=== PATIENT | female | born 1960 | race Two or more races ===

== ENCOUNTER 2024-07-29 22:04 | Inpatient (IN) | payer OTHER, MEDICARE ==
[~2024-07-29] VITALS: Ht 152.4 cm; Wt 50.8 kg
[2024-07-29 22:40] LABS: HEMOGLOBIN 14.6 g/dL (10.9-14.3); MEAN CORPUSCULAR HEMOGLOBIN 30.4 uug (24.7-32.8); MEAN CORPUSCULAR HGB CONC 34 g/dL (32.3-35.6)
[2024-07-29 22:44] LABS: BASOPHILS # (AUTO) 0.1 K/UL (0.0-0.2); BASOPHILS % (AUTO) 1.1 % (0.0-2.0); EOSINOPHILS # (AUTO) 0.2 K/uL (0.0-0.7); EOSINOPHILS % (AUTO) 2.6 % (0.0-7.0); HEMATOCRIT 43.5 % (31.2-41.9); LYMPHOCYTES # (AUTO) 1.5 K/uL (0.8-4.8); LYMPHOCYTES % (AUTO) 17.9 % (20.5-51.5); MEAN CORPUSCULAR VOLUME 90.4 fL (75.5-95.3); MONOCYTES % (AUTO) 11.8 % (0.0-11.0); NEUTROPHILS # (AUTO) 5.7 K/uL (1.8-8.9); NEUTROPHILS % (AUTO) 66.6 % (38.5-71.5); PLATELET COUNT (AUTO) 340 K/uL (179-408); RED BLOOD CELL COUNT(AUTO) 4.81 MIL/uL (3.63-4.92); RED CELL DISTRIBUTION WIDTH 13.5 % (12.3-17.7); WHITE BLOOD COUNT (AUTO) 8.6 K/uL (3.8-11.8)
[2024-07-29 22:46] LABS: DIFFERENTIAL COMMENT 1
[2024-07-29 22:48] LABS: AMMONIA < 10 umol/L (11-32)
[2024-07-29 22:51] LABS: ETHANOL < 3 MG/DL (0-10)
[2024-07-29 22:56] LABS: ALANINE AMINOTRANSFERASE 23 U/L (14-59); ALKALINE PHOSPHATASE 107 U/L (50-136); ASPARTATE AMINOTRANSFERASE 22 U/L (15-37); BILIRUBIN,DIRECT 0.1 mg/dL (0.0-0.2); BILIRUBIN,TOTAL 0.6 mg/dL (0.2-1.0); CALCIUM 9.6 mg/dL (8.5-10.1); CARBON DIOXIDE 31 mmol/L (21-32); CHLORIDE 102 mmol/L (98-107); CREATININE 0.7 mg/dL (0.6-1.3); GLUCOSE 107 mg/dL (74-106); POTASSIUM 3.9 mmol/L (3.5-5.1); SODIUM SERUM 143 mmol/L (136-145); UREA NITROGEN, BLOOD 9 mg/dL (7-18)
[2024-07-29 22:57] LABS: ACETAMINOPHEN < 10.0 ug/mL (10-30)
[2024-07-30] VITALS (11 sets, daily range): BP systolic 119–174; BP diastolic 64–112; TEMP 98.4–98.9; O2SAT 93–99
[2024-07-30] MEDS ORDERED: IOHEXOL 350 100 ML INFUS..BTL ONE (00:46)
[2024-07-30] MEDS ORDERED: ONDANSETRON 4 MG/2 ML VIAL IV PRN (02:30)
[2024-07-30 07:33] LABS: BASOPHILS # (AUTO) 0.1 K/UL (0.0-0.2); BASOPHILS % (AUTO) 1.3 % (0.0-2.0); EOSINOPHILS # (AUTO) 0.2 K/uL (0.0-0.7); EOSINOPHILS % (AUTO) 2.8 % (0.0-7.0); HEMATOCRIT 40.7 % (31.2-41.9); HEMOGLOBIN 13.9 g/dL (10.9-14.3); LYMPHOCYTES # (AUTO) 1.5 K/uL (0.8-4.8); LYMPHOCYTES % (AUTO) 21.6 % (20.5-51.5); MEAN CORPUSCULAR HEMOGLOBIN 30.8 uug (24.7-32.8); MEAN CORPUSCULAR HGB CONC 34 g/dL (32.3-35.6); MEAN CORPUSCULAR VOLUME 90.4 fL (75.5-95.3); MONOCYTES # (AUTO) 0.8 K/uL (0.1-1.30); MONOCYTES % (AUTO) 10.8 % (0.0-11.0); NEUTROPHILS # (AUTO) 4.4 K/uL (1.8-8.9); NEUTROPHILS % (AUTO) 63.5 % (38.5-71.5); PLATELET COUNT (AUTO) 325 K/uL (179-408); RED BLOOD CELL COUNT(AUTO) 4.51 MIL/uL (3.63-4.92); RED CELL DISTRIBUTION WIDTH 13.2 % (12.3-17.7)
[2024-07-30 07:55] LABS: DIFFERENTIAL COMMENT 1
[2024-07-30 08:01] LABS: ALBUMIN 2.7 g/dL (3.4-5.0); BILIRUBIN,DIRECT 0.1 mg/dL (0.0-0.2); BILIRUBIN,TOTAL 0.6 mg/dL (0.2-1.0); CALCIUM 8.9 mg/dL (8.5-10.1); CREATININE 0.6 mg/dL (0.6-1.3); MAGNESIUM 2.3 mg/dL (1.8-2.4); PHOSPHOROUS 4.1 mg/dL (2.5-4.9); POTASSIUM 3.5 mmol/L (3.5-5.1); TOTAL PROTEIN, SERUM 6.4 g/dL (6.4-8.2)
[2024-07-30 08:05] LABS: THYROID STIMULATING HORMONE 1.393 mIU/mL (0.358-3.740)
[2024-07-30] MEDS: ASPIRIN 81 MG TAB.CHEW PO SCH (09:00)
[2024-07-30 13:53] LABS: *BILIRUBIN,URIN NEGATIVE (NEGATIVE); *CLARITY,URINE SLIGHTLY CLOUDY (CLEAR); *COLOR,URINE YELLOW (YELLOW); *KETONES,URINE NEGATIVE (NEGATIVE); *PROTEIN,URINE TRACE (NEGATIVE); LEUKOCYTE ESTERASE ,URINE 2+ (NEGATIVE); NITRITE, URINE POSITIVE (NEGATIVE); PH,URINE >=9.0 (5.0-8.0); UGLUCOSE NEGATIVE (NEGATIVE)
[2024-07-30 13:56] LABS: *BLOOD, URINE TRACE (NEGATIVE)
[2024-07-30 14:08] LABS: BACTERIA,URINE MANY /HPF (NONE SEEN); URINE AMORPHOUS PHOSPHATES FEW /HPF
[2024-07-30 14:13] LABS: *AMPHETAMINE, URINE NEGATIVE (NEGATIVE); *BARBITURATE, URINE NEGATIVE (NEGATIVE); *BENZODIAZEPINE, URINE NEGATIVE (NEGATIVE); *CANNABINOID, URINE NEGATIVE (NEGATIVE); *COCCAINE, URINE NEGATIVE (NEGATIVE); *OPIATE, URINE NEGATIVE (NEGATIVE); *PHENCYCLIDINE SCREEN,URINE NEGATIVE (NEGATIVE); FENTANYL, URINE NEGATIVE (NEGATIVE)
[2024-07-30] MEDS: IV NS 1000 ML 1,000 ML IV PRN (15:55)
[2024-07-30 18:06] LABS: THYROID STIMULATING HORMONE 0.736 mIU/mL (0.358-3.740)
[2024-07-30] MEDS: ATORVASTATIN 40 MG TABLET PO SCH (20:20)
[2024-07-31] VITALS (26 sets, daily range): BP systolic 112–179; BP diastolic 51–103; TEMP 97.5–98.5; O2SAT 91–100
[2024-08-01] VITALS (23 sets, daily range): BP systolic 116–178; BP diastolic 55–108; TEMP 97.1–98.4; O2SAT 97–100
[2024-08-01] MEDS: CEFTRIAXONE 1 G in IV DEXTROSE 5% 50 ML IV SCH (15:30)
[2024-08-01] MEDS: VANCOMYCIN HCL 750 MG in IV DEXTROSE 5% 250 ML IV SCH (16:30)
[2024-08-02] VITALS (25 sets, daily range): BP systolic 116–159; BP diastolic 51–119; TEMP 98–98.7; O2SAT 97–100
[2024-08-02 05:12] LABS: BASOPHILS # (AUTO) 0.1 K/UL (0.0-0.2); BASOPHILS % (AUTO) 0.6 % (0.0-2.0); EOSINOPHILS # (AUTO) 0.2 K/uL (0.0-0.7); HEMATOCRIT 43.7 % (31.2-41.9); HEMOGLOBIN 14.5 g/dL (10.9-14.3); LYMPHOCYTES # (AUTO) 1.3 K/uL (0.8-4.8); LYMPHOCYTES % (AUTO) 11.4 % (20.5-51.5); MEAN CORPUSCULAR HEMOGLOBIN 29.9 uug (24.7-32.8); MEAN CORPUSCULAR HGB CONC 33 g/dL (32.3-35.6); MEAN CORPUSCULAR VOLUME 90.1 fL (75.5-95.3); MONOCYTES # (AUTO) 1.2 K/uL (0.1-1.30); MONOCYTES % (AUTO) 10.3 % (0.0-11.0); NEUTROPHILS # (AUTO) 8.8 K/uL (1.8-8.9); NEUTROPHILS % (AUTO) 75.7 % (38.5-71.5); PLATELET COUNT (AUTO) 343 K/uL (179-408); RED BLOOD CELL COUNT(AUTO) 4.85 MIL/uL (3.63-4.92); RED CELL DISTRIBUTION WIDTH 13.3 % (12.3-17.7); WHITE BLOOD COUNT (AUTO) 11.7 K/uL (3.8-11.8)
[2024-08-02 05:35] LABS: DIFFERENTIAL COMMENT 1
[2024-08-02 05:49] LABS: ALBUMIN 2.4 g/dL (3.4-5.0); BILIRUBIN,TOTAL 0.6 mg/dL (0.2-1.0); CALCIUM 8.4 mg/dL (8.5-10.1); CREATININE 0.6 mg/dL (0.6-1.3); MAGNESIUM 1.8 mg/dL (1.8-2.4); PHOSPHOROUS 2.5 mg/dL (2.5-4.9); POTASSIUM 3.8 mmol/L (3.5-5.1); TOTAL PROTEIN, SERUM 6.2 g/dL (6.4-8.2)
[2024-08-02] MEDS: LORAZEPAM 2 MG/1 ML VIAL IV ONE (11:15)
[2024-08-03] VITALS (21 sets, daily range): BP systolic 107–157; BP diastolic 46–109; TEMP 98.3–99.2; O2SAT 90–100
[2024-08-03] MEDS: VANCOMYCIN HCL 750 MG in IV DEXTROSE 5% 250 ML IV SCH (14:04)
[2024-08-03] MEDS: CEphaleXIN 500 MG CAPSULE PO SCH (21:01)
[2024-08-04 00:03] VITALS: BP 114/69; TEMP 98.7; O2SAT 100
[2024-08-04 06:00] VITALS: BP 123/66; TEMP 98; O2SAT 98
[2024-08-04 07:18] LABS: BASOPHILS # (AUTO) 0.1 K/UL (0.0-0.2); BASOPHILS % (AUTO) 1.4 % (0.0-2.0); EOSINOPHILS # (AUTO) 0.2 K/uL (0.0-0.7); EOSINOPHILS % (AUTO) 1.8 % (0.0-7.0); HEMATOCRIT 44.3 % (31.2-41.9); HEMOGLOBIN 15.1 g/dL (10.9-14.3); LYMPHOCYTES # (AUTO) 1.5 K/uL (0.8-4.8); LYMPHOCYTES % (AUTO) 14.2 % (20.5-51.5); MEAN CORPUSCULAR HEMOGLOBIN 30.5 uug (24.7-32.8); MEAN CORPUSCULAR HGB CONC 34 g/dL (32.3-35.6); MEAN CORPUSCULAR VOLUME 89.8 fL (75.5-95.3); MONOCYTES # (AUTO) 1.4 K/uL (0.1-1.30); MONOCYTES % (AUTO) 13.4 % (0.0-11.0); NEUTROPHILS # (AUTO) 7.2 K/uL (1.8-8.9); NEUTROPHILS % (AUTO) 69.2 % (38.5-71.5); PLATELET COUNT (AUTO) 343 K/uL (179-408); RED BLOOD CELL COUNT(AUTO) 4.93 MIL/uL (3.63-4.92); RED CELL DISTRIBUTION WIDTH 13.3 % (12.3-17.7); WHITE BLOOD COUNT (AUTO) 10.4 K/uL (3.8-11.8)
[2024-08-04 07:26] LABS: CALCIUM 8.6 mg/dL (8.5-10.1); CREATININE 0.7 mg/dL (0.6-1.3); POTASSIUM 3.9 mmol/L (3.5-5.1)
[2024-08-04 07:29] LABS: MAGNESIUM 2.2 mg/dL (1.8-2.4); PHOSPHOROUS 3.8 mg/dL (2.5-4.9)
[2024-08-04 07:34] LABS: DIFFERENTIAL COMMENT 1
[2024-08-04 07:38] VITALS: BP 119/63; TEMP 97; O2SAT 97
[2024-08-04] MEDS: METOPROLOL TARTRATE 25 MG TABLET PO SCH (08:28)
[2024-08-04 16:00] VITALS: BP 138/56; TEMP 97.6; O2SAT 97
[2024-08-04 19:49] VITALS: BP 140/68; TEMP 98.8; O2SAT 93
[2024-08-05 06:19] VITALS: BP 124/56; TEMP 98.4; O2SAT 98
[2024-08-05 12:00] VITALS: BP 139/61; TEMP 97.6; O2SAT 98
[2024-08-05 16:00] VITALS: BP 136/80; TEMP 98.6; O2SAT 97
[2024-08-05 20:58] VITALS: BP 132/62; TEMP 98.2; O2SAT 97
[2024-08-06 06:00] VITALS: BP 124/54; TEMP 98.2; O2SAT 97
[2024-08-06 08:11] LABS: BASOPHILS # (AUTO) 0.1 K/UL (0.0-0.2); BASOPHILS % (AUTO) 1.2 % (0.0-2.0); EOSINOPHILS # (AUTO) 0.2 K/uL (0.0-0.7); EOSINOPHILS % (AUTO) 3.1 % (0.0-7.0); HEMOGLOBIN 13.5 g/dL (10.9-14.3); LYMPHOCYTES # (AUTO) 1.5 K/uL (0.8-4.8); LYMPHOCYTES % (AUTO) 20.2 % (20.5-51.5); MEAN CORPUSCULAR HEMOGLOBIN 30.4 uug (24.7-32.8); MEAN CORPUSCULAR HGB CONC 34 g/dL (32.3-35.6); MEAN CORPUSCULAR VOLUME 89.9 fL (75.5-95.3); MONOCYTES # (AUTO) 0.9 K/uL (0.1-1.30); MONOCYTES % (AUTO) 12.7 % (0.0-11.0); NEUTROPHILS # (AUTO) 4.6 K/uL (1.8-8.9); NEUTROPHILS % (AUTO) 62.8 % (38.5-71.5); PLATELET COUNT (AUTO) 384 K/uL (179-408); RED BLOOD CELL COUNT(AUTO) 4.45 MIL/uL (3.63-4.92); RED CELL DISTRIBUTION WIDTH 13.3 % (12.3-17.7); WHITE BLOOD COUNT (AUTO) 7.4 K/uL (3.8-11.8)
[2024-08-06 08:25] LABS: DIFFERENTIAL COMMENT 1
[2024-08-06] MEDS: CLOPIDOGREL 75 MG TABLET PO SCH (08:31)
[2024-08-06 08:56] LABS: ALBUMIN 2.4 g/dL (3.4-5.0); BILIRUBIN,TOTAL 0.5 mg/dL (0.2-1.0); CALCIUM 8.9 mg/dL (8.5-10.1); CREATININE 0.6 mg/dL (0.6-1.3); PHOSPHOROUS 4.2 mg/dL (2.5-4.9); POTASSIUM 4.2 mmol/L (3.5-5.1); TOTAL PROTEIN, SERUM 6.5 g/dL (6.4-8.2)
[2024-08-06 08:58] VITALS: BP 111/57; TEMP 98; O2SAT 98
[2024-08-06 11:38] VITALS: BP 155/77; TEMP 98.3; O2SAT 98
[2024-08-06 15:18] VITALS: BP 154/63; TEMP 97.5; O2SAT 98
[2024-08-06 16:23] VITALS: BP 154/63; TEMP 97.5; O2SAT 97
[2024-08-06 20:00] VITALS: BP 145/65; TEMP 98.7; O2SAT 96
[2024-08-07 06:00] VITALS: BP 123/63; TEMP 97.9; O2SAT 95
[2024-08-07 12:00] VITALS: BP 139/64; TEMP 97.7; O2SAT 96
[2024-08-07 16:54] VITALS: BP_SYST 117; BP_SYST 162; BP_DIAS 63; BP_DIAS 71; TEMP 97.6; O2SAT 97
[2024-08-07 20:36] VITALS: BP 165/75; TEMP 98.6; O2SAT 98
[2024-08-08 06:22] VITALS: BP 147/69; TEMP 97.6; O2SAT 96
[2024-08-08] MEDS: REMEDY ESSENTIAL ZINC PASTE 113 GM TP PRN (08:54)
[2024-08-08 11:59] VITALS: BP 142/59; TEMP 98.2; O2SAT 94
[2024-08-08] MEDS ORDERED: ASPI81TA31 PO (12:12)
[2024-08-08] MEDS ORDERED: METO25TA6 PO (12:12)
[2024-08-08] MEDS ORDERED: ATOR40TA PO (12:12)
[2024-08-08 15:44] VITALS: BP 144/63; TEMP 97.6; O2SAT 99
== END 2024-08-08 19:10 | DRG 45 ==
LOC: ER 22:07 → CCU 07-30 14:05 → TELE3 08-03 13:57 → MEDSURG3 08-04 10:35
PROVIDERS: ADMIT Nurse Practitioner Family; ATTEND Nurse Practitioner Family
DX: I63.512 Cerebral infarction due to unspecified occlusion or stenosis of left middle cerebral artery (principal); G93.49 Other encephalopathy; G93.6 Cerebral edema; E43 Unspecified severe protein-calorie malnutrition; D68.59 Other primary thrombophilia; G93.89 Other specified disorders of brain; R47.01 Aphasia; E88.09 Other disorders of plasma-protein metabolism, not elsewhere classified; R29.715 NIHSS score 15; Z74.09 Other reduced mobility; Z58.89 Other problems related to physical environment; N39.0 Urinary tract infection, site not specified; B96.20 Unspecified Escherichia coli [E. coli] as the cause of diseases classified elsewhere; E78.5 Hyperlipidemia, unspecified; J45.909 Unspecified asthma, uncomplicated; Z87.891 Personal history of nicotine dependence; Z86.73 Personal history of transient ischemic attack (TIA), and cerebral infarction without residual deficits; I49.3 Ventricular premature depolarization; F19.11 Other psychoactive substance abuse, in remission
CPT/HCPCS: 36415; 70450; 70496; 70551; 71045; 83605; 83735; 83921; 84100; 84443; 84484; 85025; 85730; 87040; 93005; 93307; A4606; G0378; G0480; J0696; J2060; J7040; J7050; Q9967

== ENCOUNTER 2025-02-27 10:25 | Inpatient (IN) | payer MEDICARE, OTHER ==
[~2025-02-27] VITALS: Ht 152.4 cm; Wt 64.0 kg
[~2025-02-27 10:25] MED LIST: ASPI81TA31 PO; ATOR40TA PO; METO25TA6 PO
[2025-02-27] MEDS ORDERED: MULT-594 PO (10:55)
[2025-02-27] MEDS ORDERED: POLY15DR31 EACHEYE (10:55)
[2025-02-27] MEDS ORDERED: CHOL-35 PO (10:55)
[2025-02-27 10:57] LABS: BASOPHILS % (AUTO) 0.6 % (0.0-2.0); EOSINOPHILS # (AUTO) 0.2 K/uL (0.0-0.7); EOSINOPHILS % (AUTO) 2.3 % (0.0-7.0); HEMATOCRIT 41.2 % (31.2-41.9); HEMOGLOBIN 13.9 g/dL (10.9-14.3); LYMPHOCYTES # (AUTO) 1.7 K/uL (0.8-4.8); LYMPHOCYTES % (AUTO) 22.6 % (20.5-51.5); MEAN CORPUSCULAR HEMOGLOBIN 29.7 uug (24.7-32.8); MEAN CORPUSCULAR HGB CONC 34 g/dL (32.3-35.6); MEAN CORPUSCULAR VOLUME 88.1 fL (75.5-95.3); MONOCYTES # (AUTO) 0.7 K/uL (0.1-1.30); MONOCYTES % (AUTO) 9.3 % (0.0-11.0); NEUTROPHILS % (AUTO) 65.2 % (38.5-71.5); PLATELET COUNT (AUTO) 314 K/uL (179-408); RED BLOOD CELL COUNT(AUTO) 4.68 MIL/uL (3.63-4.92); RED CELL DISTRIBUTION WIDTH 13.5 % (12.3-17.7); WHITE BLOOD COUNT (AUTO) 7.6 K/uL (3.8-11.8)
[2025-02-27 11:03] LABS: CALCIUM 9.2 mg/dL (8.5-10.1); CARBON DIOXIDE 28 mmol/L (21-32); CHLORIDE 106 mmol/L (98-107); CREATININE 0.5 mg/dL (0.6-1.3); GLUCOSE 94 mg/dL (74-106); POTASSIUM 3.8 mmol/L (3.5-5.1); SODIUM SERUM 141 mmol/L (136-145); UREA NITROGEN, BLOOD 19 mg/dL (7-18)
[2025-02-27 11:16] LABS: NT-PRO BNP 40 pg/mL (0-125)
[2025-02-27 11:36] LABS: DIFFERENTIAL COMMENT 1
[2025-02-27 11:53] VITALS: BP 176/73; TEMP 98.4; O2SAT 97
[2025-02-27] MEDS ORDERED: ATOR40TA PO (12:07)
[2025-02-27] MEDS ORDERED: METO25TA6 PO (12:09)
[2025-02-27 15:59] VITALS: BP 153/77; TEMP 97.7; O2SAT 95
[2025-02-27] MEDS ORDERED: HYDROCODONE/APAP 5-325MG TABLET PO PRN (16:00)
[2025-02-27] MEDS ORDERED: TEMAZEPAM 15 MG CAPSULE PO PRN (16:00)
[2025-02-27] MEDS ORDERED: ONDANSETRON 4 MG/2 ML VIAL IV PRN (16:00)
[2025-02-27] MEDS: METOPROLOL TARTRATE 25 MG TABLET PO SCH (17:37)
[2025-02-27] MEDS: ASPIRIN 81 MG TAB.CHEW PO SCH (17:37)
[2025-02-27] MEDS: ATORVASTATIN 40 MG TABLET PO SCH (20:30)
[2025-02-27] MEDS: DOCUSATE SODIUM 100 MG CAPSULE PO SCH (20:30)
[2025-02-27 20:42] VITALS: BP 139/70; TEMP 97.8; O2SAT 100
[2025-02-27] MEDS ORDERED: DOCUSATE SODIUM 250 MG CAPSULE PO SCH (21:00)
[2025-02-28 00:31] VITALS: BP 142/61; TEMP 98.2; O2SAT 94
[2025-02-28 04:51] VITALS: BP 127/73; TEMP 97.7; O2SAT 98
[2025-02-28] MEDS: PANTOPRAZOLE SODIUM 40 MG TABLET.DR PO SCH (06:06)
[2025-02-28 07:22] VITALS: BP 144/68; TEMP 97.5; O2SAT 97
[2025-02-28] MEDS: MULTIVITAMINS,THERAPEUTIC TABLET PO SCH (08:44)
[2025-02-28] MEDS: ACETAMINOPHEN 325 MG TABLET PO PRN (08:44)
[2025-02-28] MEDS: CHOLECALCIFEROL 1,000 UNIT TABLET PO SCH (08:44)
[2025-02-28] MEDS ORDERED: Medication Not On Formulary EA (Multivitamins (Multivitamin) 1 EACH) PO SCH (09:00)
[2025-02-28 09:23] LABS: BASOPHILS # (AUTO) 0.1 K/UL (0.0-0.2); BASOPHILS % (AUTO) 1.1 % (0.0-2.0); EOSINOPHILS # (AUTO) 0.2 K/uL (0.0-0.7); EOSINOPHILS % (AUTO) 3.3 % (0.0-7.0); HEMATOCRIT 41.2 % (31.2-41.9); HEMOGLOBIN 14.2 g/dL (10.9-14.3); LYMPHOCYTES # (AUTO) 1.8 K/uL (0.8-4.8); MEAN CORPUSCULAR HEMOGLOBIN 30.4 uug (24.7-32.8); MEAN CORPUSCULAR HGB CONC 34 g/dL (32.3-35.6); MEAN CORPUSCULAR VOLUME 88.6 fL (75.5-95.3); MONOCYTES # (AUTO) 0.6 K/uL (0.1-1.30); MONOCYTES % (AUTO) 8.8 % (0.0-11.0); NEUTROPHILS # (AUTO) 3.9 K/uL (1.8-8.9); NEUTROPHILS % (AUTO) 58.8 % (38.5-71.5); PLATELET COUNT (AUTO) 315 K/uL (179-408); RED BLOOD CELL COUNT(AUTO) 4.65 MIL/uL (3.63-4.92); RED CELL DISTRIBUTION WIDTH 13.5 % (12.3-17.7); WHITE BLOOD COUNT (AUTO) 6.6 K/uL (3.8-11.8)
[2025-02-28 09:31] LABS: DIFFERENTIAL COMMENT 1
[2025-02-28 09:59] LABS: ALBUMIN 3.1 g/dL (3.4-5.0); BILIRUBIN,TOTAL 0.7 mg/dL (0.2-1.0); CALCIUM 9.3 mg/dL (8.5-10.1); CREATININE 0.6 mg/dL (0.6-1.3); PHOSPHOROUS 3.7 mg/dL (2.5-4.9); POTASSIUM 3.8 mmol/L (3.5-5.1); TOTAL PROTEIN, SERUM 7.3 g/dL (6.4-8.2)
[2025-02-28 11:43] VITALS: BP 122/65; TEMP 98.2; O2SAT 96
[2025-02-28 11:43] LABS: THYROID STIMULATING HORMONE 1.491 mIU/mL (0.358-3.740)
[2025-02-28] MEDS ORDERED: REMEDY ESSENTIAL ZINC PASTE 113 GM TOP PRN (13:00)
[2025-02-28 15:53] VITALS: BP 139/70; TEMP 98.5; O2SAT 96
[2025-02-28 19:35] VITALS: BP 153/69; TEMP 98.2; O2SAT 94
[2025-02-28] MEDS: REMEDY ESSENTIAL ZINC PASTE 113 GM TOP SCH (21:28)
[2025-03-01 06:11] VITALS: BP 143/79; TEMP 97.8; O2SAT 100
[2025-03-01] MEDS: PROTEIN SUPPLEMENT (PROSTAT) 30 ML LIQUID PO SCH (08:00)
[2025-03-01 11:54] VITALS: BP 141/69; TEMP 97.8; O2SAT 98
[2025-03-01 15:48] VITALS: BP 116/69; TEMP 98.1; O2SAT 98
[2025-03-01] MEDS ORDERED: HYDROCODONE/APAP 5-325MG TABLET PO PRN (19:30)
[2025-03-01 20:00] VITALS: BP 139/55; TEMP 97.8; O2SAT 97
[2025-03-02 06:15] VITALS: BP 143/68; TEMP 97.6; O2SAT 98
[2025-03-02 07:27] LABS: BASOPHILS # (AUTO) 0.1 K/UL (0.0-0.2); BASOPHILS % (AUTO) 0.9 % (0.0-2.0); EOSINOPHILS # (AUTO) 0.3 K/uL (0.0-0.7); EOSINOPHILS % (AUTO) 3.9 % (0.0-7.0); HEMATOCRIT 39.6 % (31.2-41.9); HEMOGLOBIN 13.3 g/dL (10.9-14.3); LYMPHOCYTES # (AUTO) 1.8 K/uL (0.8-4.8); LYMPHOCYTES % (AUTO) 25.5 % (20.5-51.5); MEAN CORPUSCULAR HEMOGLOBIN 29.6 uug (24.7-32.8); MEAN CORPUSCULAR HGB CONC 34 g/dL (32.3-35.6); MEAN CORPUSCULAR VOLUME 87.9 fL (75.5-95.3); MONOCYTES # (AUTO) 0.7 K/uL (0.1-1.30); MONOCYTES % (AUTO) 10.6 % (0.0-11.0); NEUTROPHILS # (AUTO) 4.2 K/uL (1.8-8.9); NEUTROPHILS % (AUTO) 59.1 % (38.5-71.5); PLATELET COUNT (AUTO) 297 K/uL (179-408); RED CELL DISTRIBUTION WIDTH 13.7 % (12.3-17.7); WHITE BLOOD COUNT (AUTO) 7.1 K/uL (3.8-11.8)
[2025-03-02 07:52] LABS: DIFFERENTIAL COMMENT 1
[2025-03-02 08:00] LABS: CALCIUM 9.3 mg/dL (8.5-10.1); CREATININE 0.5 mg/dL (0.6-1.3); PHOSPHOROUS 4.1 mg/dL (2.5-4.9)
[2025-03-02 11:17] VITALS: BP 108/57; TEMP 98.4; O2SAT 95
[2025-03-02] MEDS ORDERED: ACET325T53 PO (11:30)
[2025-03-02] MEDS ORDERED: DOCU-141 PO (11:30)
[2025-03-02] MEDS ORDERED: TEMA15CA PO (11:30)
[2025-03-02] MEDS ORDERED: PROT30LI PO (11:30)
[2025-03-02 14:57] VITALS: BP 160/84
[2025-03-02] MEDS: hydrALAZINE HCL 25 MG TABLET PO PRN (14:57)
== END 2025-03-02 15:22 | DRG 206 ==
LOC: ER 10:25 → TELE3 11:16 → MEDSURG3 02-28 12:33
PROVIDERS: ADMIT Internal Medicine; ATTEND Internal Medicine
DX: M94.0 Chondrocostal junction syndrome [Tietze] (principal); I69.351 Hemiplegia and hemiparesis following cerebral infarction affecting right dominant side; E44.1 Mild protein-calorie malnutrition; D68.59 Other primary thrombophilia; M19.09 Primary osteoarthritis, other specified site; I69.320 Aphasia following cerebral infarction; E66.9 Obesity, unspecified; Z68.27 Body mass index [BMI] 27.0-27.9, adult; E88.09 Other disorders of plasma-protein metabolism, not elsewhere classified; F01.A0 Vascular dementia, mild, without behavioral disturbance, psychotic disturbance, mood disturbance, and anxiety; Z87.891 Personal history of nicotine dependence; J44.9 Chronic obstructive pulmonary disease, unspecified; I25.10 Atherosclerotic heart disease of native coronary artery without angina pectoris; I10 Essential (primary) hypertension; I49.3 Ventricular premature depolarization; E78.5 Hyperlipidemia, unspecified
CPT/HCPCS: 36415; 71045; 83735; 84100; 84443; 84484; 85025; A6213; G0378